=== PATIENT | female | born 1955 | race Caucasian/White ===

== ENCOUNTER 2022-02-08 12:41 | Emergency (ER) | payer MEDICARE ==
[~2022-02-08] VITALS: Ht 154.9 cm; Wt 75.0 kg
[2022-02-08] VITALS (9 sets, daily range): BP systolic 105–130; BP diastolic 61–67
[~2022-02-08 12:41] MED LIST: ZITHROMAX250 MG PO
[2022-02-08 14:49] LABS: HEMATOCRIT 42.3 % (37.0-47.0); HEMOGLOBIN 13.5 g/dl (12.0-16.0); IMMATURE GRANULOCYTES 0.1 % (0.0-5.0); MEAN CORPUSCULAR HGB CONC 31.9 g/dL CAL (32.0-36.0); NEUT# 4.52 thou/uL (2.00-7.15); RED BLOOD COUNT 4.65 mill/uL (4.20-5.60); RED CELL DISTRI WIDTH 12.9 % (11.5-15.5)
[2022-02-08 15:01] LABS: ANION GAP 13 (6-22 (CALC)); BUN 11 mg/dL (8-23); BUN/CREATININE RATIO 13 (12-20 (CALC)); CARBON DIOXIDE 24 mmol/l (22-30); CHLORIDE 106 mmol/l (95-108); CREATININE 0.9 mg/dL (0.5-1.0); GFR > 60 ML/MIN (>=60 (CALC)); GFR FOR AFR.AMER. > 60 ML/MIN (>=60 (CALC)); SODIUM 139 mmol/l (137-146)
[2022-02-08] MEDS ORDERED: DOXYCYCLINE100 MG PO (15:39)
== END 2022-02-08 16:11 | disposition home or self-care (01) ==
LOC: ED 12:41
PROVIDERS: Nurse Practitioner
DX: L03.012 Cellulitis of left finger (principal); F17.200 Nicotine dependence, unspecified, uncomplicated

== ENCOUNTER 2022-02-09 08:11 | Emergency (ER) | payer MEDICARE ==
[~2022-02-09] VITALS: Ht 154.9 cm; Wt 52.7 kg
[~2022-02-09 08:11] MED LIST changes: +DOXYCYCLINE100 MG PO
[2022-02-09 08:31] VITALS: BP 113/60
[2022-02-09 08:45] VITALS: BP 112/78
[2022-02-09 09:00] VITALS: BP 107/64
[2022-02-09 09:15] VITALS: BP 118/64
[2022-02-09 09:22] VITALS: BP 118/64
== END 2022-02-09 09:22 | disposition home or self-care (01) ==
LOC: ED 08:11
DX: L03.012 Cellulitis of left finger (principal)

== ENCOUNTER 2024-06-07 06:45 | Day surgery (SDC) | payer MEDICARE ==
[~2024-06-07] VITALS: Ht 154.9 cm; Wt 53.1 kg
[~2024-06-07 06:45] MED LIST changes: +IBUPROFEN200 MG PO; +TYLENOL325 M2 PO
[2024-06-07] MEDS ORDERED: LACTATED RINGER'S 1,000 ML IV ONE (06:54)
[2024-06-07 08:51] VITALS: BP 117/69
[2024-06-07] MEDS ORDERED: PROPOFOL 200 MG/20 ML VIAL IV ONE (15:13)
[2024-06-07] MEDS ORDERED: LIDOCAINE HCL 2% 2ML SDV IV ONE (15:13)
== END 2024-06-07 09:07 | disposition home or self-care (01) ==
LOC: ORM 06:45
PROVIDERS: ATTEND Internal Medicine Gastroenterology
PROC: 0DBP8ZX Excision of Rectum, Via Natural or Artificial Opening Endoscopic, Diagnostic (ICD-10-PCS; principal; 2024-06-07)
DX: K57.31 Diverticulosis of large intestine without perforation or abscess with bleeding (principal); D12.8 Benign neoplasm of rectum; K64.8 Other hemorrhoids